=== PATIENT | male | born 1985 | race Caucasian/White ===

== ENCOUNTER 2016-12-10 17:47 | Emergency (ER) | payer SELFPAY ==
[~2016-12-10] VITALS: Ht 167.6 cm; Wt 61.4 kg
[2016-12-10 18:03] VITALS: BP 118/79; PULSE 75; RESP 16; O2SAT 98
--- NOTE | 2016-12-10 20:53 | ED.REPORT ---
HPI-Back Pain Under 40 Date of Service Dec 10, 2016 ED Provider: Gilberto Perdomo DO A 31 year old male with a history of smoking presents to the ED complaining of severe back pain with any PO intake. The pt was sore yesterday morning and had trouble getting out of bed. When he attempted to eat, he was able to swallow but experienced severe pain when food was travelling down his esophagus. The pain caused his back to "lock up" and he found himself unable to move. This occurs any time the pt attempts to eat something. The pt denies swallowing anything recently that could have caused a blockage in his esophagus. He denies vomiting. Nursing Notes Stated Complaint: BACK PAIN, HURTS TO SWALLOW Chief Complaint: Back Pain or Injury Nursing Notes Reviewed: Yes Allergies: Coded Allergies: naproxen (Verified Adverse Reaction, Severe, Nausea,Vomiting, 12/10/16) General Time Seen by MD: 20:53 Chief Complaint Other (Pain with swallowing) Hx Obtained From: Patient Arrived By: Walk-in Sudden in Onset?: Yes Onset Occurred: 1 day ago Recent Healthcare: No recent doctor visit, No recent hospitalization Similar Sx Previous: No Past Medical History Past Medical History childhood asthma Past Surgical History hernia repair Smoking History Current Every Day Smoker Social History 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 Physical Exam Initial Vital Signs Vital Signs (First) Date Time Temp Pulse Resp B/P Pulse Ox O2 Delivery O2 Flow Rate FiO2 12/10/16 18:03 36.7 75 16 118/79 98 Room Air Initial VS: Reviewed General/Constitutional: Awake, Alert Back: Atraumatic, Full range of motion Neurologic: Oriented X3, Speech NL, No motor deficits, No sensory deficits Neck: Atraumatic, Supple, Full range of motion Respiratory / Chest: Atraumatic, Breath sounds NL, Breath sounds = bilat, No respiratory distress Cardiovascular: Heart rate NL, Regular rhythm, Heart sounds NL Abdomen: Atraumatic, Soft, Non-tender Lower Extremity / Pelvis / MS: Atraumatic, Full range of motion Head / Eyes: Atraumatic, Normocephalic, PERRL, EOMI ENT: Atraumatic, Airway patent, Mucous membranes moist Upper Extremity / MS: Atraumatic, Full range of motion Skin: Atraumatic, Color NL, No rash, Warm, Dry Psychiatric: Affect NL, Mood NL Interpretation & Diagnostics Lab Results Interpretation Result Diagram: 12/10/16211412/10/162114 Test 12/10/16 21:15 White Blood Count 10.5th/mm3 (3.8-10.1) Red Blood Count 4.59mil/mm3 (4.40-5.80) Hemoglobin 14.1g/dL (13.8-17.2) Hematocrit 40.9% (41.0-50.0) Mean Corpuscular Volume 89.1fL (81-100) Mean Corpuscular Hemoglobin 30.7pg (27.0-35.0) Mean Corpuscular Hemoglobin Concent 34.5% (32.0-37.0) Red Cell Distribution Width 11.9% (12.3-15.4) Platelet Count 271bil/L (150-400) Neutrophils (%) (Auto) 46.3% (40-74) Lymphocytes (%) (Auto) 43.1% (14-46) Monocytes (%) (Auto) 5.9% (4-12) Eosinophils (%) (Auto) 3.6% (0-5) Basophils (%) (Auto) 1.0% (0-3) D-Dimer < 0.5mg/L (<0.50) Sodium Level 142mEq/L (134-144) Potassium Level 3.8mEq/L (3.5-5.2) Chloride Level 101mEq/L (97-108) Carbon Dioxide Level 25mmol/L (18-29) Blood Urea Nitrogen 18mg/dL (6-20) Creatinine 0.96mg/dL (0.76-1.27) Estimat Glomerular Filtration Rate 96mL/min (>59) Glucose Level 92mg/dL (60-99) Calcium Level 9.3mg/dL (8.5-10.1) Total Bilirubin 0.2mg/dL (0.0-1.2) Aspartate Amino Transf (AST/SGOT) 19U/L (0-50) Alanine Aminotransferase (ALT/SGPT) 29U/L (0-44) Alkaline Phosphatase 79U/L (25-150) Troponin T 0.010ug/L (0.0-0.011) Total Protein 7.4g/dL (6.4-8.4) Albumin 4.5g/dL (3.4-5.0) Hold [place] Tube Received (Received) Pulse Oximetry Interpretation Pulse Oximetry Interpretation: 98% on room air Pulse Oximetry: Pulse Ox normal ECG Interpretation ECG Interpretation: normal sinus rhythm with a rate of 60 ST elevation, probable early normal repol pattern Time: 21:25 Interpreted by: ED physician X-Ray Chest Interpretation Chest Xray Interpretation: IMPRESSION: No acute cardiopulmonary disease. Dictated by: Christianne Duong M.D. on 12/10/2016 at 21:24 Approved by: Christianne Duong M.D. on 12/10/2016 at 21:24 Interpretation / Wet Read by: Interpret - Radiologist Re-Eval/Medical Decision Med Decision/Clinical Course There certainly seems to be a component of musculoskeletal pain. The pain when he swallows is also concerning for esophageal disease. Chest x-ray is normal. D-dimer is negative. Laboratory work is reassuring. Pain was adequately treated. I will place him on Protonix as well as a short course of opiates for pain and recommend close outpatient follow-up. At discharge he was essentially pain-free. Normal vital signs and he looked well. Re-Evaluation/Progress : Time of Eval: 23:20 Patient Status: Condition improved Re-Evaluation/Progress Note: Pt rechecked, who is feeling significantly better and prepared for discharge. Radiology results, diagnosis, and the plan for discharge are discussed. The pt understands and agrees with the plan. All questions are addressed at this time. Counseled Regarding: Diagnosis, Lab results, Need for follow-up, When/why to return to ED Discharge & Departure Impression: Primary Impression: Interscapular pain Additional Impression: Odynophagia Disposition: Home All VS Reviewed: Yes Condition: Stable Patient Instructions: Esophageal Spasm (ED) Additional Instructions: Take 1-2 [place] every 6 hours as needed for severe pain. Do not drink, drive, or consume acetaminophen while taking the [place]. Protonics daily for two weeks. Rest your back and follow up with your primary care physician next week for further evaluation. Also follow up with DISHA Doyle. Return to the emergency department if you develop any new or worsening symptoms. Referrals: Louis Juares MD [facility] [place] marie Attestation Portions of this note were transcribed by Charlotte Myers. I, Dr. Perdomo personally performed the history, physical exam and medical decision-making; I reviewed and confirmed the accuracy of the information in the transcribed note. Signed by: Armen Sellers, 12/10/2016 and 23:36. copies to: [facility] Gilberto Perdomo DO Dec 10, 2016 20:53 CHARLOTTE MYERS Dec 10, 2016 21:07
[2016-12-10] MEDS ORDERED: Pantoprazole 4 mg/mL 10 mL Inj IVPUSH ONE (21:00)
[2016-12-10] MEDS ORDERED: Ondansetron 2 mg/mL 2 mL Inj IVPUSH PRN (21:00)
[2016-12-10] MEDS: Sodium Chloride LOK Flush 10 mL Syringe IVFLUSH SCH ×2 (21:23→21:32)
--- NOTE | 2016-12-10 21:25 | DRSVH ---
PROCEDURE: X-RAY CHEST, TWO VIEWS ([id number]) INDICATIONS: intrascapular chest pain TECHNIQUE: 2 views of the chest were acquired. COMPARISON: None. FINDINGS: Surgical changes and devices: None. Lungs and pleura: No pleural effusions or pneumothorax. Lungs are clear. Mediastinum: Mediastinal contours are normal. Heart size is normal. Bones and chest wall: No suspicious bony abnormalities. Soft tissues appear unremarkable. IMPRESSION: No acute cardiopulmonary disease. Dictated by: Christianne Duong M.D. on 12/10/2016 at 21:24 Approved by: Christianne Duong M.D. on 12/10/2016 at 21:24
[2016-12-10] MEDS: HYDROmorphone 0.5 mg/0.5 mL iSecure Syringe IVPUSH PRN ×2 (21:32→22:09)
[2016-12-10 21:42] LABS: EOSINOPHILS % (AUTO) 3.6 % (0-5); MONOCYTES % (AUTO) 5.9 % (4-12); Mean Corpuscular Hemoglobin 30.7 pg (27.0-35.0); Mean Corpuscular Volume 89.1 fL (81-100); NEUTROPHILS % (AUTO) 46.3 % (40-74); Platelet Count 271 bil/L (150-400)
[2016-12-10 21:50] VITALS: BP 101/67; PULSE 60; RESP 20; O2SAT 99
[2016-12-10] MEDS ORDERED: 0.9% Sodium Chloride 1,000 ML IV SCH (22:10)
[2016-12-10 22:26] LABS: TROPONIN T 0.01 ug/L (0.0-0.011)
[2016-12-10 23:26] VITALS: BP 109/66; PULSE 65; RESP 16; O2SAT 97
== END 2016-12-10 23:31 | disposition home or self-care (01) ==
LOC: SED 17:47
DX: M25.519 Pain in unspecified shoulder (principal); R13.10 Dysphagia, unspecified; F17.210 Nicotine dependence, cigarettes, uncomplicated; Z88.8 Allergy status to other drugs, medicaments and biological substances
CPT/HCPCS: 36415; 71020; 80053; 84484; 85025; 85379; 93005; 96361; 96374; 96375; 96376; 99285; J1170; J2405; J7030